=== PATIENT | female | born 1970 | race Caucasian/White ===

== ENCOUNTER 2019-11-13 10:27 | Day surgery (SDC) | payer OTHER ==
[2019-11-09 12:51] VITALS: BMI 22.4
[2019-11-09 14:04] LABS: Hemoglobin 11.7 g/dL (12.0-16.0); Mean Corpuscular Hemoglobin 29.9 pg (27.0-31.0); Mean Corpuscular Volume 93.4 fL (78.0-98.0); Mean Platelet Volume 8.5 fL (7.4-10.4); Platelet Count 261 thou/uL (130-400); RBC Distribution Width 14.9 % (11.5-14.5); White Blood Cell (WBC) Count 4.3 thou/uL (4.8-10.8)
[2019-11-09 14:23] LABS: BHCG - Serum Negative (NEGATIVE); Pregs Control Background? CLEAR/WHITE (CLR/WHITE); Pregs Control Bar Appear? YES (CONTROL BAR)
[2019-11-10 17:20] LABS: SARS-CoV-2 MS2 Positive; SARS-CoV-2 N Gene Negative; SARS-CoV-2 S Gene Negative; SARS-CoV-2 orf1ab Negative
--- NOTE | 2019-11-12 17:28 | HP ---
REASON FOR ADMISSION: Menorrhagia and endometrial polyp. SCHEDULED PROCEDURE: D and C, hysteroscopy, Truclear resection of uterine polyp. HISTORY OF PRESENT ILLNESS: Ms. Irwin is a 49-year-old, 4, para 3, AB1 with a history of increasing menorrhagia and intermenstrual bleeding. Ultrasound suggests a large 3 cm endocavitary polyp. Endometrial biopsy was benign. Pap smear was ASCUS, but negative HPV and negative ECC, which is most consistent with polyp cells on her Pap smear. She does not desire hysterectomy and desires conservative management at this time. 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 No history of dysplasia. PAST MEDICAL HISTORY: None. PAST SURGICAL HISTORY: Denies. ALLERGIES: DENIES. MEDICATIONS: Aygestin. SOCIAL HISTORY: Denies tobacco, alcohol, or IV drug abuse. FAMILY HISTORY: Noncontributory. REVIEW OF SYSTEMS: Noncontributory. PHYSICAL EXAMINATION: GENERAL: White female, 5 feet 5 inches. VITAL SIGNS: Blood pressure 128/82, pulse 85, respirations 18. HEENT: Within normal limits. LUNGS: Clear to auscultation bilaterally. HEART: Regular rate and rhythm. BREASTS: No masses bilaterally. ABDOMEN: Soft, nontender. No rebound or guarding. Vulva without lesions. Vagina without discharge. Cervix, parous. Uterus, anteverted 6-week size. Adnexa, no masses bilaterally. EXTREMITIES: No clubbing, cyanosis, or edema. LABORATORY DATA: Ultrasound, EMB, and Pap as noted. IMPRESSION: Endocavitary mass consistent with polyp, benign biopsy results per persistent menorrhagia. PLAN: Hysteroscopy, D and C, resection of endocavitary polyp with Truclear. The patient understands risks and benefits of procedure including bleeding, infection, perforation, and failure to completely remove the polyp, as well as recurrence of the polyp. We will proceed with the aforementioned procedure. Appropriate DVT and antibiotic prophylaxis at [facility] on 11/12. Job ID: [id number]
[2019-11-13] MEDS ORDERED: Fentanyl 100 MCG/2 ML VIAL ONE (11:58)
[2019-11-13] MEDS ORDERED: Dexamethasone 20 MG/5 ML VIAL ONE (12:54)
[2019-11-13] MEDS ORDERED: PROPOFOL 200 MG/20 ML VIAL ONE (12:54)
[2019-11-13] MEDS ORDERED: Ketorolac Tromethamine 30 MG/ML VIAL ONE (12:54)
[2019-11-13] MEDS ORDERED: Ondansetron PF 4 MG/2 ML Vial ONE (12:54)
[2019-11-13] MEDS ORDERED: Lidocaine 1% PF 5 ML VIAL ONE (12:54)
[2019-11-13] MEDS ORDERED: Tranexamic Acid 650 MG TAB PO SCH (14:45)
[2019-11-13] MEDS ORDERED: HYDROcodone/Acetaminophen 5/325 mg Tablet ONE (15:50)
--- NOTE | 2019-11-13 19:04 | OP ---
DATE OF PROCEDURE: 11/13/2019 PREOPERATIVE DIAGNOSIS: Menorrhagia, suspected intracavitary polyp. POSTOPERATIVE DIAGNOSIS: Menorrhagia with apparent intracavitary fibroid. PROCEDURE: Hysteroscopic partial resection of 3 x 4 cm intracavitary fibroid. ANESTHESIA: Laryngeal mask airway. ESTIMATED BLOOD LOSS: 150 mL. COMPLICATIONS: None. MEDICATIONS: 2 g Ancef preincision, DVT prophylaxis, and SCDs. OPERATIVE FINDINGS: 1. Normal saline and 6000 mL deficit approximately 500 mL. 2. Approximately 3 x 4 cm intracavitary fibroid resected approximately 25% prior to termination of the procedure secondary to excessive fluid volume and inability to calculate intraoperative real-time fluid deficit. DISPOSITION: Recovery room in good condition. DISCHARGE MEDICATIONS: Lysteda and Aygestin. FOLLOWUP: [facility] in 1 week. DESCRIPTION OF PROCEDURE: After obtaining appropriate informed consent, the patient was taken to the operative room, where laryngeal mask airway anesthesia achieved without difficulty. Patient was prepped and draped in usual manner in dorsal lithotomy in Colt stirrups. Sliding speculum placed in vagina, cervix identified, grasped with single-toothed tenaculum at 12 o'clock, sounded to 9 to 10 cm. Serially dilated up to appropriate level. Hysteroscope was introduced into the cavity. Findings as noted in the operative findings were noted. The Plus TruClear was used with the dense tissue blade. Resection was carried out, however, the mass was very firm and was never really able to achieve appropriate suction and removal of tissues that would allow for rapid progress with the fibroid. In addition, the provided suction tubing was collapsing decreasing the return flow to the hysteroscopic polyp and deficit measure and significant leaking was noted on the floor throughout the case with insufficient drainage of the fluid drapes. Repetitive attempts at correcting these issues were unsuccessful and was still unable to get good purchase of tissue and removal of tissue with the TruClear despite having the window open on the oscillating blade, etc. After removing approximately 25% of the fibroid, we had gone through 6 L of fluid. We were unable to quantify intraoperatively real-time the amount of fluid deficit. Because of this, decision was made to abandon the procedure. The hysteroscope was removed. The tenaculum was removed. Moderate amount of bleeding was noted initially, but this decreased significantly and relatively quickly. The tenaculum was removed and no bleeding was noted from the tenaculum site. After cleaning up and measuring water in different catch basins that were not part of the automatic measuring system, it is felt that the fluid deficit was approximately 500 mL at most over a 45-minute time. No evidence of perforation was noted during the procedure. The patient was taken to recovery room in good condition. She will be given Lysteda 1300 mg p.o. prior to discharge and she will restart on her Aygestin and take Lysteda for three days. We will call the patient tomorrow and discuss findings, will likely elect to proceed with laparoscopic hysterectomy in the future for definitive therapy. Job ID: [id number]
== END 2019-11-13 16:20 | disposition home or self-care (01) ==
LOC: SDC 10:27
PROVIDERS: ATTEND Obstetrics & Gynecology
PROC: 0UB98ZZ Excision of Uterus, Via Natural or Artificial Opening Endoscopic (ICD-10-PCS; principal; 2019-11-13)
DX: D25.9 Leiomyoma of uterus, unspecified (principal); Z53.8 Procedure and treatment not carried out for other reasons; Z79.818 Long term (current) use of other agents affecting estrogen receptors and estrogen levels
CPT/HCPCS: 36415; 84703; 85027; 86850; 86900; 86901; 87635; 88305; J0690; J1100; J1885; J2001; J2405; J2704; J3010; U0003

== ENCOUNTER 2020-01-11 05:19 | Outpatient (CLI) | payer OTHER ==
[2020-01-11 17:20] LABS: SARS-CoV-2 MS2 Positive; SARS-CoV-2 N Gene Negative; SARS-CoV-2 S Gene Negative; SARS-CoV-2 by NAA Not Detected (NotDetected); SARS-CoV-2 orf1ab Negative
== END 2020-01-11 05:20 | disposition home or self-care (01) ==
LOC: LABBT 05:19
PROVIDERS: ATTEND Obstetrics & Gynecology
DX: Z01.812 Encounter for preprocedural laboratory examination (principal); Z11.59 Encounter for screening for other viral diseases; D25.9 Leiomyoma of uterus, unspecified; N92.0 Excessive and frequent menstruation with regular cycle
CPT/HCPCS: 87635; U0003

== ENCOUNTER 2020-01-15 07:56 | Day surgery (SDC) | payer OTHER ==
[2020-01-10 10:43] VITALS: BMI 23.1
[2020-01-11 11:19] LABS: Hemoglobin 11.6 g/dL (12.0-16.0); Mean Corpuscular HGB CONC 32.4 g/dL (32.0-36.0); Mean Corpuscular Hemoglobin 29.9 pg (27.0-31.0); Mean Corpuscular Volume 92.3 fL (78.0-98.0); Mean Platelet Volume 8.8 fL (7.4-10.4); Platelet Count 237 thou/uL (130-400); RBC Distribution Width 13.4 % (11.5-14.5); Red Blood Cell (RBC) Count 3.87 mill/uL (4.20-5.40); White Blood Cell (WBC) Count 4.1 thou/uL (4.8-10.8)
--- NOTE | 2020-01-15 05:21 | HP ---
REASON FOR ADMISSION: Persistent menorrhagia and dysmenorrhea, status post incomplete resection of intracavitary fibroid. HISTORY OF PRESENT ILLNESS: Ms. Irwin is a 49-year-old, 4, para 3, AB1, who underwent a hysteroscopic attempt at total resection of intracavitary fibroid with Truclear in November. Total resection was unsuccessful and the patient has continued to have bleeding since then. She desires definitive surgical management. Pathology on the hysteroscopy was benign. 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 MEDICAL HISTORY: None. SURGICAL HISTORY: Hysteroscopic resection. ALLERGIES: DENIES. MEDICATIONS: Provera. SOCIAL HISTORY: Denies tobacco, alcohol, or IV drug abuse. FAMILY HISTORY: Noncontributory. REVIEW OF SYSTEMS: Noncontributory. PHYSICAL EXAMINATION: GENERAL: White female, 5 feet and 5 inches. VITAL SIGNS: Blood pressure 126/78, pulse 85, respirations 17. HEENT: Within normal limits. LUNGS: Clear to auscultation bilaterally. HEART: Regular rate and rhythm. BREASTS: No masses bilaterally. ABDOMEN: Soft, nontender. No rebound. No guarding. Vulva without lesions. Vagina without discharge. Cervix, parous. Uterus, anteverted, 6-week size. Adnexa, no masses bilaterally. EXTREMITIES: No clubbing, cyanosis, or edema. IMPRESSION: Persistent menorrhagia and dysmenorrhea secondary to intracavitary fibroid with incomplete previous attempted resection. PLAN: The patient desires definitive management. We will proceed with total laparoscopic hysterectomy, bilateral salpingectomy. The patient understands risks and benefits of procedure. We will administer appropriate antibiotic and DVT prophylaxis. Job ID: [id number]
[2020-01-15] MEDS ORDERED: CeleCOXIB 100 MG CAP ONE (08:20)
[2020-01-15] MEDS ORDERED: Famotidine 20 MG TAB ONE (08:20)
[2020-01-15] MEDS ORDERED: Gabapentin 300 MG CAP ONE (08:20)
[2020-01-15] MEDS ORDERED: Famotidine/PF 20 mg/2ml Vial ONE (08:21)
[2020-01-15] MEDS ORDERED: Lidocaine 1% w/Epinephrine 1:100K 20 ML VIAL ONE (08:49)
[2020-01-15] MEDS ORDERED: Bupivacaine PF 0.5% 30 ML VIAL ONE (08:49)
[2020-01-15] MEDS ORDERED: Fentanyl 100 MCG/2 ML VIAL ONE ×2 (10:21→12:20)
[2020-01-15] MEDS ORDERED: HYDROmorphone 0.5 MG/0.5 ML SYRINGE ONE (10:22)
[2020-01-15] MEDS ORDERED: Dexamethasone 20 MG/5 ML VIAL ONE (11:01)
[2020-01-15] MEDS ORDERED: Lidocaine 1% PF 5 ML VIAL ONE (11:01)
[2020-01-15] MEDS ORDERED: Glycopyrrolate 0.2 MG/ML 5 ML SYRINGE ONE (11:01)
[2020-01-15] MEDS ORDERED: PROPOFOL 200 MG/20 ML VIAL ONE (11:01)
[2020-01-15] MEDS ORDERED: Rocuronium Bromide 10 MG/ML (10ML VIAL) ONE (11:01)
[2020-01-15] MEDS ORDERED: EPHEDRINE 25 MG/5 ML SYRINGE ONE (11:01)
[2020-01-15] MEDS ORDERED: Ondansetron HCl/PF 4 MG/2 ML Vial IVP PRN (11:49)
[2020-01-15] MEDS ORDERED: HYDROmorphone 2 MG/ML VIAL SLOW IVP PRN (11:49)
[2020-01-15] MEDS ORDERED: Meperidine HCl/PF 25 MG/ML VIAL SLOW IVP PRN (11:49)
[2020-01-15] MEDS ORDERED: Promethazine HCl 25 MG/ML VIAL SLOW IVP PRN (11:49)
[2020-01-15] MEDS ORDERED: HYDROcodone/Acetaminophen 5/325 mg Tablet PO PRN ×2 (11:59)
[2020-01-15] MEDS ORDERED: Promethazine HCl 25 MG/ML VIAL IM PRN (11:59)
[2020-01-15] MEDS ORDERED: diphenhydrAMINE 25 MG CAP PO PRN (11:59)
[2020-01-15] MEDS ORDERED: Ondansetron PF 4 MG/2 ML Vial IVP PRN (11:59)
[2020-01-15] MEDS ORDERED: Bisacodyl 10 MG SUPP PR PRN (11:59)
[2020-01-15] MEDS ORDERED: Zolpidem Tartrate 5 MG TAB PO PRN (11:59)
[2020-01-15] MEDS ORDERED: Simethicone Chewable 80 MG TAB PO PRN (11:59)
[2020-01-15] MEDS ORDERED: Morphine 4 MG/ML VIAL SLOW IVP PRN (11:59)
[2020-01-15] MEDS: Ketorolac Tromethamine 30 MG/ML VIAL IVP SCH ×3 (13:51→23:36)
[2020-01-15] MEDS: Sodium Chloride 0.9% 1,000 ML IV SCH ×2 (13:52→23:38)
--- NOTE | 2020-01-15 14:53 | OP ---
DATE OF PROCEDURE: 01/15/2020 PREOPERATIVE DIAGNOSES: Intracavitary fibroid, dysfunctional uterine bleeding, status post incomplete resection with hysteroscopy, a fibroid. POSTOPERATIVE DIAGNOSES: Intracavitary fibroid, dysfunctional uterine bleeding, status post incomplete resection with hysteroscopy, a fibroid. PROCEDURES PERFORMED: Total laparoscopic hysterectomy and bilateral salpingectomy. TOOL AND DIE REPAIR: GERA Ruiz. ANESTHESIA: General endotracheal. ESTIMATED BLOOD LOSS: 50 mL. DRAINS: Ricardo to gravity. FINDINGS: 1. Approximately six-week size uterus with aforementioned fibroid. 2. Normal-appearing tubes and ovaries bilaterally. 3. Hemostasis, clear urine. COUNTS: Correct at the end of the procedure. DISPOSITION: To the recovery room in good condition. DESCRIPTION OF PROCEDURE: After obtaining proper consent, the patient was taken to the operating room, where general endotracheal anesthesia achieved without difficulty. She was prepped and draped in dorsal lithotomy position in [facility]. A weighted speculum was placed in vagina. Cervix was identified and grasped with single-toothed tenaculum, sounded to 8. BRANDI manipulator with 8 cm obturator, and 4 cm vaginal clinical nursing instructor was placed. Ricardo catheter was placed. Tenaculum and speculum were removed. Doll Dresser changed his gloves, turned attention to abdominal portion of the procedure. 5 mL of Marcaine injected at the superior aspect of the umbilicus. A 12 mm skin incision was made. A Veress needle was placed in the abdominal cavity. Insufflation was carried out with carbon dioxide for a maximum pressure of 15 and volume approximately 3.5 L. A 12 mm noncutting balloon Jai trocar was placed without difficulty and confirmation of entry into the peritoneal cavity without trauma to uterine vessels was noted. The patient was placed in steep Trendelenburg position. Right and left lateral trocars for the da Lydia robot were placed under direct visualization as well as an 11 mm delivery driver assistant port in the right upper quadrant. Da Lydia robot was docked. Monopolar scissors in the right hand and bipolar fenestrated forceps in the left. Uterus was mobilized and left distal fallopian tube was grasped. It was coagulated at the level of the mesosalpinx and extended from there through the mesosalpinx up to the level of the insertion and the uterus was excised and removed for pathologic analysis. The utero-ovarian was coagulated and transected using bipolar cautery and then the monopolar scissors, the broad, the round, and down to the level internal cervical os. On the left, treated the vesicouterine peritoneum, was incised sharply and dissected off the cervix and upper vagina. Skeletonization of the uterine vessels on the left was carried out and these were coagulated and transected. Attention was turned to the right, where the identical procedure was carried out removing the fallopian tube, coagulating, and transecting the utero-ovarian, the broad, the round and down the level of internal cervical os, skeletonizing the uterine vessels, transecting and ligating them. Ureters were identified bilaterally well lateral to the surgical field. After coagulating and transecting both the right and left uterine vessels, the vagina was entered anteriorly at 12 o'clock and extended from 12 to 3, 12 to 9 and then from 9 to 6 and 3 to 6, amputating the specimen and pulling in the vagina to maintain pneumoperitoneum. Suction irrigation was carried out and good hemostasis was noted along the cuff. The bladder was backfilled to identify it. Margins for vaginal closure. The vagina was closed using running locking 2-0 PDS suture lock from right to left and then back to right in my usual two-level technique. Suction irrigation was carried out. Good hemostasis noted. Tisseel applied across all surgical pedicles. The Da Lydia instruments were removed. The Da Lydia undocked. Trocars were removed after desufflated the abdomen with carbon dioxide. The fascia was grasped at the level of the umbilicus and reapproximated using a pursestring of 0 Vicryl on a UR6 needle. The skin reapproximated x4 using 4-0 Monocryl and Dermabond. The vagina inspected and noted to be intact and dry and clear urine noted. The patient awakened, extubated, and taken to recovery room in good condition. Job ID: [id number]
[2020-01-16] MEDS ORDERED: Ibuprofen 800 MG TAB PO SCH (06:00)
[2020-01-16] MEDS: Sodium Chloride 0.9% 1,000 ML IV SCH (06:00)
[2020-01-16 06:25] LABS: Hemoglobin 9.7 g/dL (12.0-16.0); Mean Corpuscular HGB CONC 31.6 g/dL (32.0-36.0); Mean Corpuscular Volume 91.6 fL (78.0-98.0); Mean Platelet Volume 10.4 fL (7.4-10.4); Platelet Count 122 thou/uL (130-400); RBC Distribution Width 13.1 % (11.5-14.5); Red Blood Cell (RBC) Count 3.35 mill/uL (4.20-5.40); White Blood Cell (WBC) Count 6.2 thou/uL (4.8-10.8)
[2020-01-16 08:07] VITALS: BP 128/64; TEMP 98.5
--- NOTE | 2020-01-16 09:46 | DIS ---
DATE OF ADMISSION: 01/15/2020 DATE OF DISCHARGE: 01/16/2020 PRIMARY PROCEDURE: The patient underwent a TLH-bilateral salpingectomy on late morning of 01/14. HOSPITAL COURSE: She is resting comfortably this morning, is dressed, has put on her makeup, and is consuming a regular diet. She has no complaints. PHYSICAL EXAMINATION: VITAL SIGNS: Temperature is 98.5, pulse 74, respirations 20, blood pressure 120/64, T-max 98.5. Urine output 1300 mL and had several unmeasured voids as well. LUNGS: Clear to auscultation bilaterally. HEART: Regular rate and rhythm. ABDOMEN: Soft and nontender. Incisions are intact x4, perineum dry. EXTREMITIES: No clubbing, cyanosis, or edema. LABORATORY DATA: Hematocrit went from 35% to 31% postoperatively. IMPRESSION: Doing well, status post TLH-bilateral salpingectomy. PLAN: Discharge home. Keep scheduled followup at [facility]. Job ID: [id number]
== END 2020-01-16 09:29 | disposition home or self-care (01) ==
LOC: SDC 07:56 → 3SE 11:59 → SDC 01-16 09:29
PROVIDERS: ATTEND Obstetrics & Gynecology
PROC: 0UT74ZZ Resection of Bilateral Fallopian Tubes, Percutaneous Endoscopic Approach (ICD-10-PCS; principal; 2020-01-15)
PROC: 0UT94ZZ Resection of Uterus, Percutaneous Endoscopic Approach (ICD-10-PCS; principal; 2020-01-15)
DX: D25.9 Leiomyoma of uterus, unspecified (principal); N72 Inflammatory disease of cervix uteri; N80.0 Endometriosis of uterus; N83.8 Other noninflammatory disorders of ovary, fallopian tube and broad ligament; Z79.1 Long term (current) use of non-steroidal anti-inflammatories (NSAID); Z98.890 Other specified postprocedural states
CPT/HCPCS: 36415; 85027; 86850; 86900; 86901; 88307; J0690; J1100; J1170; J1885; J2270; J2704; J3010; S0020; S0028

== ENCOUNTER 2023-04-08 11:36 | Outpatient (CLI) | payer BC | END 2023-04-08 11:37 | disposition home or self-care (01) | LOC: BICMAMMO 11:36 | PROVIDERS: ATTEND Obstetrics & Gynecology | DX: Z12.31 Encounter for screening mammogram for malignant neoplasm of breast (principal); Z91.89 Other specified personal risk factors, not elsewhere classified | CPT/HCPCS: 77063; 77067 ==

== ENCOUNTER 2024-04-10 10:39 | Outpatient (CLI) | payer BC | END 2024-04-10 10:40 | disposition home or self-care (01) | LOC: BICMAMMO 10:39 | PROVIDERS: ATTEND Obstetrics & Gynecology | DX: Z12.31 Encounter for screening mammogram for malignant neoplasm of breast (principal); Z91.89 Other specified personal risk factors, not elsewhere classified | CPT/HCPCS: 77063; 77067 ==